=== PATIENT | female | born 1960 | race Caucasian/White ===

== ENCOUNTER 2016-08-12 15:23 | Outpatient (CLI) | payer BC ==
[~2016-08-12 15:23] MED LIST: ASPI81TA2 PO; LIP10 PO; LISI-600 PO; LORA-258 PO; MECL12.5 PO; METO25TA6 PO; POTA10CA68 PO
== END 2016-08-12 19:45 | disposition home or self-care (01) ==
LOC: SRD 15:23
PROVIDERS: ATTEND Family Medicine
DX: J44.9 Chronic obstructive pulmonary disease, unspecified (principal)
CPT/HCPCS: 71020-TC

== ENCOUNTER 2016-11-09 02:05 | Emergency (ER) | payer BC ==
[~2016-11-09] VITALS: Ht 154.9 cm; Wt 90.7 kg
[2016-11-09 02:05] VITALS: BP_SYST 144
[~2016-11-09 02:05] MED LIST changes: -MECL12.5 PO
[2016-11-09 03:23] LABS: BASOPHILS # (AUTO) 0.1 K/uL (0.0-0.2); EOSINOPHILS % (AUTO) 0.5 % (0.0-4.0); HEMOGLOBIN 14.2 g/dL (12.0-16.0); LYMPHOCYTES # (AUTO) 1.8 K/uL (1.0-5.5); LYMPHOCYTES % (AUTO) 20.7 % (20.5-51.5); MEAN CORPUSCULAR HEMOGLOBIN 32 pg (27-31); MEAN CORPUSCULAR HGB CONC 33 % (32-36); MEAN CORPUSCULAR VOLUME 96 fL (79.0-98.0); MONOCYTES # (AUTO) 0.8 K/uL (0.0-1.0); MONOCYTES % (AUTO) 9.8 % (1.7-9.3); NEUTROPHILS # (AUTO) 5.8 K/uL (1.8-7.7); PLATELET COUNT (AUTO) 119 K/uL (130-430); RED BLOOD CELL COUNT(AUTO) 4.49 MIL/uL (4.2-6.2); RED CELL DISTRIBUTION WIDTH 13.3 % (9.0-15.0); WHITE BLOOD COUNT (AUTO) 8.5 K/uL (4.8-10.8)
[2016-11-09 03:36] LABS: INR 1.1 (0.8-1.2); PROTHROMBIN TIME 12.4 SECS (9.5-12.5)
[2016-11-09 03:43] LABS: CALCIUM 8.9 mg/dL (8.4-11.0); POTASSIUM 3.3 mmol/L (3.5-5.1)
[2016-11-09 03:44] LABS: CREATININE 0.92 mg/dL (0.55-1.30); TOTAL BILIRUBIN 0.8 mg/dL (0.0-1.0)
[2016-11-09 03:45] LABS: ALBUMIN 3.5 g/dL (3.4-4.8); TOTAL PROTEIN, SERUM 7.3 g/dL (6.4-8.3)
[2016-11-09] MEDS ORDERED: POTASSIUM CHLORIDE 20 MEQ TAB.PRT.SR PO ONE (04:30)
[2016-11-09 04:40] VITALS: BP_SYST 131
== END 2016-11-09 04:40 | disposition home or self-care (01) ==
LOC: SED 02:05
DX: S86.911A Strain of unspecified muscle(s) and tendon(s) at lower leg level, right leg, initial encounter (principal); R60.0 Localized edema; Z86.73 Personal history of transient ischemic attack (TIA), and cerebral infarction without residual deficits; Z79.82 Long term (current) use of aspirin; Z87.891 Personal history of nicotine dependence; X58.XXXA Exposure to other specified factors, initial encounter; Y93.89 Activity, other specified; Y92.89 Other specified places as the place of occurrence of the external cause; Y99.8 Other external cause status
CPT/HCPCS: 36415; 80053; 84484; 85025; 85379; 85610-TC; 93971; 99285

== ENCOUNTER 2023-06-23 13:51 | Inpatient (IN) | payer BC ==
[~2023-06-23] VITALS: Ht 157.5 cm; Wt 73.5 kg
[~2023-06-23 13:51] MED LIST changes: +ASPI-1155 PO; -ASPI81TA2 PO; -LISI-600 PO; +LISI20TA30 PO
[2023-06-23 13:56] VITALS: BP_SYST 137; PULSE 121; RESP 28; TEMP 98.9; O2SAT 91
[2023-06-23] MEDS ORDERED: METF-379 PO (14:15)
[2023-06-23] MEDS ORDERED: CALC-1263 PO (14:15)
[2023-06-23] MEDS ORDERED: ASCO500T20 PO (14:15)
[2023-06-23] MEDS ORDERED: IPRATROPIUM/ALBUTEROL SULFATE 3 ML AMPUL.NEB (DUONEB) INH ONE (14:15)
[2023-06-23] MEDS ORDERED: ASPI-1393 PO (14:15)
[2023-06-23] MEDS ORDERED: DEXAMETHASONE SOD PHOSPHATE 10 MG/ML VIAL IVP ONE (14:15)
[2023-06-23] MEDS ORDERED: VITD2000 PO (14:15)
[2023-06-23] MEDS ORDERED: guaiFENesin/DEXTROMETHORPHAN 10 ML UDC PO ONE ×2 (14:15→21:30)
[2023-06-23] MEDS ORDERED: ALBMDI INH (14:15)
[2023-06-23] MEDS ORDERED: LOSA-413 PO (14:15)
[2023-06-23] MEDS ORDERED: MAGN400T10 PO (14:15)
[2023-06-23 14:40] LABS: BASOPHILS % (AUTO) 0.2 % (0.0-2.0); HEMOGLOBIN 14.3 g/dL (12.0-16.0); LYMPHOCYTES # (AUTO) 0.6 K/uL (1.0-5.5); MONOCYTES % (AUTO) 10.1 % (1.7-9.3)
[2023-06-23] MEDS ORDERED: KETOROLAC TROMETHAMINE 30 MG VIAL IVP ONE (14:45)
[2023-06-23 14:48] LABS: EOSINOPHILS % (AUTO) 0.4 % (0.0-4.0); LYMPHOCYTES % (AUTO) 5.2 % (20.5-51.5); MEAN CORPUSCULAR HEMOGLOBIN 31 pg (27-31); MEAN CORPUSCULAR HGB CONC 34 % (32-36); MEAN CORPUSCULAR VOLUME 91 fL (79.0-98.0); MONOCYTES # (AUTO) 1.3 K/uL (0.0-1.0); NEUTROPHILS # (AUTO) 10.4 K/uL (1.8-7.7); NEUTROPHILS % (AUTO) 84.1 % (40.0-70.0); PLATELET COUNT (AUTO) 221 K/uL (130-430); RED BLOOD CELL COUNT(AUTO) 4.62 MIL/uL (4.2-6.2); RED CELL DISTRIBUTION WIDTH 14.4 % (9.0-15.0); WHITE BLOOD COUNT (AUTO) 12.4 K/uL (4.8-10.8)
[2023-06-23 14:55] LABS: ANION GAP 13 (5-15); CALCIUM 9.2 mg/dL (8.4-11.0); CARBON DIOXIDE 25 mmol/L (23-29); CHLORIDE 100 mmol/L (98-107); CREATININE 0.76 mg/dL (0.55-1.30); GFR AFRICAN AMERICAN 99 mL/min (>90); GFR NON AFRICAN-AMERICAN 81 mL/min (>90); GLUCOSE 161 mg/dL (74-106); POTASSIUM 3.6 mmol/L (3.5-5.1); SODIUM SERUM 138 mmol/L (136-145); UREA NITROGEN, BLOOD 8 mg/dL (8-21)
[2023-06-23 14:56] LABS: INR 1.1 (0.8-1.2)
[2023-06-23 15:01] LABS: ALANINE AMINOTRANSFERASE 43 U/L (12-78); ASPARTATE AMINOTRANSFERASE 29 U/L (10-37); BILIRUBIN,DIRECT 0.2 mg/dL (0.0-0.3); TOTAL BILIRUBIN 0.7 mg/dL (0.0-1.0); TOTAL PROTEIN, SERUM 7.6 g/dL (6.4-8.3)
[2023-06-23] MEDS ORDERED: cefTRIAXone 1 GM in D5W 50 ML IV ONE (16:00)
[2023-06-23] MEDS ORDERED: AZITHROMYCIN 500 MG in NS 250 ML IV ONE (16:00)
[2023-06-23] MEDS ORDERED: INSULIN REGULAR, HUMAN 100 UNITS/ML, 3 ML VIAL (humuLIN R) SUBCUT PRN (16:15)
[2023-06-23 16:21] LABS: BILIRUBIN,URINE 1+ (NEGATIVE); BLOOD, URINE NEGATIVE (NEGATIVE); CLARITY/URINE CLEAR (CLEAR); COLOR,URINE YELLOW (YELLOW); GLUCOSE,URINE NEGATIVE (NEGATIVE); KETONES,URINE 1+ (NEGATIVE); LEUKOCYTE ESTERASE ,URINE NEGATIVE (NEGATIVE); NITRITE, URINE NEGATIVE (NEGATIVE); PROTEIN URINE TRACE (NEGATIVE); UROBILINOGEN,URINE 0.2 (0.2-1.0)
[2023-06-23] MEDS ORDERED: GUAI-1313 PO (16:31)
[2023-06-23] MEDS ORDERED: CYAN250T3 PO (16:31)
[2023-06-23] MEDS ORDERED: GLUC-160 PO (16:31)
[2023-06-23] MEDS ORDERED: cefTRIAXone 1 GM VIAL ONE (16:39)
[2023-06-23] MEDS ORDERED: AZITHROMYCIN 500 MG/VIAL (ZITHROMAX) IV ONE ×2 (17:06→17:07)
[2023-06-23 17:21] LABS: INFLUENZA TYPE A Negative (NEGATIVE); INFLUENZA TYPE B NEGATIVE (NEGATIVE)
[2023-06-23 17:25] LABS: RESPIRATORY SYNCYTIAL VIRUS NEGATIVE (NEGATIVE)
[2023-06-23 18:05] LABS: BACTERIA,URINE None Seen /HPF (None Seen)
[2023-06-23] MEDS ORDERED: GUAIFENESIN PO SCH (18:45)
[2023-06-23] MEDS ORDERED: [UNRECOGNIZED DRUG - OTHER] PO SCH (18:45)
[2023-06-23] MEDS ORDERED: DEXTROMETHORPHAN PO SCH (18:45)
[2023-06-23] MEDS ORDERED: LORazepam 1 MG TABLET PO PRN (18:45)
[2023-06-23 19:53] VITALS: BP_SYST 128; PULSE 92; O2SAT 93
[2023-06-23 20:10] VITALS: O2SAT 93
[2023-06-23] MEDS: LevALBUTEROL HCL 1.25 MG/0.5 ML *CONC.* VIAL.NEB (XOPENEX CONC.) INH PRN (20:13)
[2023-06-23] MEDS ORDERED: GLUCOSAMINE PO SCH (21:00)
[2023-06-23] MEDS ORDERED: D3 PO SCH (21:00)
[2023-06-23] MEDS: CALCIUM CARBONATE/VITAMIN D3 1 TAB TABLET PO SCH (21:00)
[2023-06-23] MEDS ORDERED: BOSWELLIA SERRA PO SCH (21:00)
[2023-06-23] MEDS ORDERED: BENZONATATE 100 MG CAPSULE (TESSALON) PO ONE (21:30)
[2023-06-23] MEDS: ATORVASTATIN 10 MG TABLET PO SCH (21:35)
[2023-06-23] MEDS: METOPROLOL TARTRATE 25 MG TABLET PO SCH (21:36)
[2023-06-23] MEDS: ENOXAPARIN SODIUM 40 MG/0.4 ML SYRINGE SUBCUT SCH (21:44)
[2023-06-23] MEDS ORDERED: INSULIN REGULAR, HUMAN 10 UNITS/0.1 ML, 3 ML VIAL ONE (22:44)
[2023-06-23] MEDS: INSULIN REGULAR, HUMAN 100 UNITS/ML, 3 ML VIAL (humuLIN R) SUBCUT PRN (22:53)
[2023-06-23 23:00] VITALS: O2SAT 94
[2023-06-23] MEDS: LevALBUTEROL HCL 1.25 MG/0.5 ML *CONC.* VIAL.NEB (XOPENEX CONC.) INH SCH (23:10)
[2023-06-23] MEDS ORDERED: BENZONATATE 100 MG CAPSULE (TESSALON) ONE (23:21)
[2023-06-24] MEDS: ACETAMINOPHEN 325 MG TABLET PO PRN (00:59)
[2023-06-24] MEDS: LevALBUTEROL HCL 1.25 MG/0.5 ML *CONC.* VIAL.NEB (XOPENEX CONC.) INH PRN (04:04)
[2023-06-24 04:05] VITALS: O2SAT 94
[2023-06-24] MEDS: LevALBUTEROL HCL 1.25 MG/0.5 ML *CONC.* VIAL.NEB (XOPENEX CONC.) INH SCH ×2 (08:13→14:00)
[2023-06-24 08:14] VITALS: O2SAT 95
[2023-06-24] MEDS: INSULIN REGULAR, HUMAN 100 UNITS/ML, 3 ML VIAL (humuLIN R) SUBCUT PRN (08:27)
[2023-06-24] MEDS: metFORMIN HCL 500 MG TABLET PO SCH ×2 (09:13→18:33)
[2023-06-24] MEDS: CALCIUM CARBONATE/VITAMIN D3 1 TAB TABLET PO SCH ×2 (09:44→21:00)
[2023-06-24] MEDS: METOPROLOL TARTRATE 25 MG TABLET PO SCH ×2 (09:47→21:00)
[2023-06-24] MEDS: POTASSIUM CHLORIDE 10 MEQ TABLET.ER PO SCH (09:57)
[2023-06-24] MEDS: LOSARTAN POTASSIUM 50 MG TABLET (COZAAR) PO SCH (09:57)
[2023-06-24] MEDS: ASCORBIC ACID 500 MG TABLET PO SCH (09:57)
[2023-06-24] MEDS: ASPIRIN 81 MG TABLET(ECOTRIN) PO SCH (09:57)
[2023-06-24] MEDS: CYANOCOBALAMIN (VITAMIN B-12) 1,000 MCG TABLET PO SCH (09:57)
[2023-06-24] MEDS: CHOLECALCIFEROL (VITAMIN D3) 2,000 UNIT TABLET PO SCH (09:57)
[2023-06-24] MEDS: MAGNESIUM OXIDE 400 MG TABLET PO SCH (09:57)
[2023-06-24 14:00] VITALS: O2SAT 93
[2023-06-24] MEDS: cefTRIAXone 1 GM in D5W 50 ML IV SCH (17:24)
[2023-06-24] MEDS ORDERED: metFORMIN HCL 500 MG TABLET ONE (18:29)
[2023-06-24] MEDS: AZITHROMYCIN 500 MG in NS 250 ML IV SCH (18:33)
[2023-06-24 19:10] VITALS: BP_SYST 132; PULSE 76; RESP 16; TEMP 97.4; O2SAT 96
[2023-06-24] MEDS ORDERED: BUDESONIDE 0.5 MG/2 ML AMPUL.NEB INH ONE (19:15)
[2023-06-24 20:00] VITALS: BP_SYST 132; PULSE 76; RESP 16; TEMP 97.4; O2SAT 96
[2023-06-24 20:38] VITALS: O2SAT 96
[2023-06-24] MEDS: ATORVASTATIN 10 MG TABLET PO SCH (21:00)
[2023-06-24] MEDS ORDERED: FLUTICASONE 250 mCg/SALMETEROL 50 mCg DISKUS W.DEV INH SCH (21:00)
[2023-06-24] MEDS: ENOXAPARIN SODIUM 40 MG/0.4 ML SYRINGE SUBCUT SCH (21:00)
[2023-06-24] MEDS: guaiFENesin/DEXTROMETHORPHAN 10 ML UDC PO PRN (23:41)
[2023-06-25] VITALS (11 sets, daily range): BP systolic 130–147; PULSE 65–81; RESP 16–18; TEMP 97.2–98.1; O2SAT 2–98
[2023-06-25] MEDS: ACETAMINOPHEN 325 MG TABLET PO PRN (02:10)
[2023-06-25] MEDS: guaiFENesin/DEXTROMETHORPHAN 10 ML UDC PO PRN ×2 (05:48→17:52)
[2023-06-25 06:43] LABS: EOSINOPHILS % (AUTO) 0.2 % (0.0-4.0); HEMATOCRIT 37.1 % (36-48); HEMOGLOBIN 12.4 g/dL (12.0-16.0); LYMPHOCYTES # (AUTO) 1.2 K/uL (1.0-5.5); LYMPHOCYTES % (AUTO) 9.1 % (20.5-51.5); MEAN CORPUSCULAR HEMOGLOBIN 31 pg (27-31); MEAN CORPUSCULAR HGB CONC 33 % (32-36); MEAN CORPUSCULAR VOLUME 92 fL (79.0-98.0); MONOCYTES # (AUTO) 1.2 K/uL (0.0-1.0); MONOCYTES % (AUTO) 9.3 % (1.7-9.3); NEUTROPHILS # (AUTO) 10.4 K/uL (1.8-7.7); NEUTROPHILS % (AUTO) 81.4 % (40.0-70.0); PLATELET COUNT (AUTO) 240 K/uL (130-430); RED BLOOD CELL COUNT(AUTO) 4.05 MIL/uL (4.2-6.2); RED CELL DISTRIBUTION WIDTH 14.4 % (9.0-15.0); WHITE BLOOD COUNT (AUTO) 12.7 K/uL (4.8-10.8)
[2023-06-25] MEDS: LevALBUTEROL HCL 1.25 MG/0.5 ML *CONC.* VIAL.NEB (XOPENEX CONC.) INH SCH ×2 (07:00→15:00)
[2023-06-25] MEDS: BUDESONIDE 0.5 MG/2 ML AMPUL.NEB INH SCH ×2 (07:00→20:24)
[2023-06-25 07:07] LABS: CREATININE 0.76 mg/dL (0.55-1.30); POTASSIUM 3.8 mmol/L (3.5-5.1)
[2023-06-25] MEDS: METOPROLOL TARTRATE 25 MG TABLET PO SCH ×2 (09:31→20:53)
[2023-06-25] MEDS: metFORMIN HCL 500 MG TABLET PO SCH ×2 (09:31→17:52)
[2023-06-25] MEDS: LOSARTAN POTASSIUM 50 MG TABLET (COZAAR) PO SCH (09:32)
[2023-06-25] MEDS: POTASSIUM CHLORIDE 10 MEQ TABLET.ER PO SCH (09:32)
[2023-06-25] MEDS: ASCORBIC ACID 500 MG TABLET PO SCH (09:32)
[2023-06-25] MEDS: ASPIRIN 81 MG TABLET(ECOTRIN) PO SCH (09:32)
[2023-06-25] MEDS: MAGNESIUM OXIDE 400 MG TABLET PO SCH ×2 (09:33→21:00)
[2023-06-25] MEDS: CYANOCOBALAMIN (VITAMIN B-12) 1,000 MCG TABLET PO SCH (09:33)
[2023-06-25] MEDS: CALCIUM CARBONATE/VITAMIN D3 1 TAB TABLET PO SCH ×2 (09:33→20:52)
[2023-06-25] MEDS: CHOLECALCIFEROL (VITAMIN D3) 2,000 UNIT TABLET PO SCH (09:33)
[2023-06-25] MEDS: LevALBUTEROL HCL 1.25 MG/0.5 ML *CONC.* VIAL.NEB (XOPENEX CONC.) INH PRN (12:51)
[2023-06-25] MEDS: cefTRIAXone 1 GM in D5W 50 ML IV SCH (17:24)
[2023-06-25] MEDS: AZITHROMYCIN 500 MG in NS 250 ML IV SCH (17:24)
[2023-06-25] MEDS: traMADol HCL HCL 50 MG TABLET (ULTRAM) PO PRN (18:12)
[2023-06-25] MEDS: guaiFENesin ER 600 MG TAB PO SCH (20:53)
[2023-06-25] MEDS: ENOXAPARIN SODIUM 40 MG/0.4 ML SYRINGE SUBCUT SCH (20:54)
[2023-06-26] VITALS (11 sets, daily range): BP systolic 132–148; PULSE 69–80; RESP 17–18; TEMP 96.6–97.9; O2SAT 2–98
[2023-06-26] MEDS: BUDESONIDE 0.5 MG/2 ML AMPUL.NEB INH SCH ×2 (07:51→19:38)
[2023-06-26] MEDS: LevALBUTEROL HCL 1.25 MG/0.5 ML *CONC.* VIAL.NEB (XOPENEX CONC.) INH SCH ×3 (07:51→23:15)
[2023-06-26] MEDS: ASPIRIN 81 MG TABLET(ECOTRIN) PO SCH (09:10)
[2023-06-26] MEDS: ASCORBIC ACID 500 MG TABLET PO SCH (09:10)
[2023-06-26] MEDS: guaiFENesin ER 600 MG TAB PO SCH ×2 (09:10→21:24)
[2023-06-26] MEDS: metFORMIN HCL 500 MG TABLET PO SCH ×2 (09:10→19:44)
[2023-06-26] MEDS: POTASSIUM CHLORIDE 10 MEQ TABLET.ER PO SCH ×2 (09:11→21:23)
[2023-06-26] MEDS: CHOLECALCIFEROL (VITAMIN D3) 2,000 UNIT TABLET PO SCH (09:11)
[2023-06-26] MEDS: CYANOCOBALAMIN (VITAMIN B-12) 1,000 MCG TABLET PO SCH (09:12)
[2023-06-26] MEDS: METOPROLOL TARTRATE 25 MG TABLET PO SCH ×2 (09:12→21:24)
[2023-06-26] MEDS: LOSARTAN POTASSIUM 50 MG TABLET (COZAAR) PO SCH (09:12)
[2023-06-26] MEDS: CALCIUM CARBONATE/VITAMIN D3 1 TAB TABLET PO SCH ×2 (09:13→21:23)
[2023-06-26] MEDS: cefTRIAXone 1 GM in D5W 50 ML IV SCH (16:20)
[2023-06-26] MEDS: AZITHROMYCIN 500 MG in NS 250 ML IV SCH (19:43)
[2023-06-26] MEDS: MAGNESIUM OXIDE 400 MG TABLET PO SCH (21:23)
[2023-06-26] MEDS: ENOXAPARIN SODIUM 40 MG/0.4 ML SYRINGE SUBCUT SCH (21:25)
[2023-06-27] VITALS (11 sets, daily range): BP systolic 137–146; PULSE 64–86; RESP 18; TEMP 95.9–96.4; O2SAT 93–100
[2023-06-27] MEDS: LevALBUTEROL HCL 1.25 MG/0.5 ML *CONC.* VIAL.NEB (XOPENEX CONC.) INH PRN ×2 (05:06→13:15)
[2023-06-27] MEDS: LevALBUTEROL HCL 1.25 MG/0.5 ML *CONC.* VIAL.NEB (XOPENEX CONC.) INH SCH ×3 (07:00→23:45)
[2023-06-27] MEDS: BUDESONIDE 0.5 MG/2 ML AMPUL.NEB INH SCH ×2 (07:00→19:39)
[2023-06-27 07:53] LABS: BASOPHILS % (AUTO) 0.3 % (0.0-2.0); EOSINOPHILS # (AUTO) 0.1 K/uL (0.0-0.4); EOSINOPHILS % (AUTO) 1.5 % (0.0-4.0); HEMATOCRIT 37.4 % (36-48); HEMOGLOBIN 12.7 g/dL (12.0-16.0); LYMPHOCYTES # (AUTO) 1.4 K/uL (1.0-5.5); LYMPHOCYTES % (AUTO) 18.7 % (20.5-51.5); MEAN CORPUSCULAR HEMOGLOBIN 31 pg (27-31); MEAN CORPUSCULAR HGB CONC 34 % (32-36); MEAN CORPUSCULAR VOLUME 91 fL (79.0-98.0); MONOCYTES # (AUTO) 0.9 K/uL (0.0-1.0); MONOCYTES % (AUTO) 11.8 % (1.7-9.3); NEUTROPHILS % (AUTO) 67.7 % (40.0-70.0); PLATELET COUNT (AUTO) 232 K/uL (130-430); RED BLOOD CELL COUNT(AUTO) 4.11 MIL/uL (4.2-6.2); RED CELL DISTRIBUTION WIDTH 14.3 % (9.0-15.0); WHITE BLOOD COUNT (AUTO) 7.4 K/uL (4.8-10.8)
[2023-06-27 08:06] LABS: CALCIUM 8.3 mg/dL (8.4-11.0); CREATININE 0.66 mg/dL (0.55-1.30); POTASSIUM 3.6 mmol/L (3.5-5.1)
[2023-06-27] MEDS: CHOLECALCIFEROL (VITAMIN D3) 2,000 UNIT TABLET PO SCH (09:24)
[2023-06-27] MEDS: METOPROLOL TARTRATE 25 MG TABLET PO SCH ×2 (09:24→22:05)
[2023-06-27] MEDS: metFORMIN HCL 500 MG TABLET PO SCH ×2 (09:25→17:19)
[2023-06-27] MEDS: guaiFENesin ER 600 MG TAB PO SCH ×2 (09:25→22:04)
[2023-06-27] MEDS: ASCORBIC ACID 500 MG TABLET PO SCH (09:25)
[2023-06-27] MEDS: ASPIRIN 81 MG TABLET(ECOTRIN) PO SCH (09:25)
[2023-06-27] MEDS: LOSARTAN POTASSIUM 50 MG TABLET (COZAAR) PO SCH (09:26)
[2023-06-27] MEDS: CALCIUM CARBONATE/VITAMIN D3 1 TAB TABLET PO SCH ×2 (09:26→22:04)
[2023-06-27] MEDS: CYANOCOBALAMIN (VITAMIN B-12) 1,000 MCG TABLET PO SCH (09:26)
[2023-06-27] MEDS: cefTRIAXone 1 GM in D5W 50 ML IV SCH (16:22)
[2023-06-27] MEDS: MAGNESIUM OXIDE 400 MG TABLET PO SCH (22:03)
[2023-06-27] MEDS: LACTOBACILLUS RHAMNOSUS GG 1 CAP CAPSULE PO SCH (22:03)
[2023-06-27] MEDS: ENOXAPARIN SODIUM 40 MG/0.4 ML SYRINGE SUBCUT SCH (22:04)
[2023-06-27] MEDS: POTASSIUM CHLORIDE 10 MEQ TABLET.ER PO SCH (22:04)
[2023-06-27] MEDS: traMADol HCL HCL 50 MG TABLET (ULTRAM) PO PRN (23:51)
[2023-06-28] VITALS (9 sets, daily range): BP systolic 132–142; PULSE 68–82; RESP 16–18; TEMP 96.4–98; O2SAT 94–99
[2023-06-28] MEDS: AZITHROMYCIN 500 MG in NS 250 ML IV SCH (01:24)
[2023-06-28] MEDS: BUDESONIDE 0.5 MG/2 ML AMPUL.NEB INH SCH ×2 (07:58→19:26)
[2023-06-28] MEDS: LevALBUTEROL HCL 1.25 MG/0.5 ML *CONC.* VIAL.NEB (XOPENEX CONC.) INH SCH ×3 (07:58→22:52)
[2023-06-28 08:10] LABS: BASOPHILS % (AUTO) 0.5 % (0.0-2.0); EOSINOPHILS # (AUTO) 0.2 K/uL (0.0-0.4); HEMATOCRIT 36.7 % (36-48); HEMOGLOBIN 12.4 g/dL (12.0-16.0); LYMPHOCYTES # (AUTO) 1.6 K/uL (1.0-5.5); LYMPHOCYTES % (AUTO) 21.9 % (20.5-51.5); MEAN CORPUSCULAR HEMOGLOBIN 31 pg (27-31); MEAN CORPUSCULAR HGB CONC 34 % (32-36); MEAN CORPUSCULAR VOLUME 91 fL (79.0-98.0); MONOCYTES # (AUTO) 0.8 K/uL (0.0-1.0); MONOCYTES % (AUTO) 10.1 % (1.7-9.3); NEUTROPHILS # (AUTO) 4.9 K/uL (1.8-7.7); NEUTROPHILS % (AUTO) 65.5 % (40.0-70.0); PLATELET COUNT (AUTO) 263 K/uL (130-430); RED BLOOD CELL COUNT(AUTO) 4.04 MIL/uL (4.2-6.2); RED CELL DISTRIBUTION WIDTH 14.6 % (9.0-15.0); WHITE BLOOD COUNT (AUTO) 7.5 K/uL (4.8-10.8)
[2023-06-28 08:25] LABS: CALCIUM 9.1 mg/dL (8.4-11.0); CREATININE 0.68 mg/dL (0.55-1.30); POTASSIUM 3.6 mmol/L (3.5-5.1)
[2023-06-28] MEDS: ACETAMINOPHEN 325 MG TABLET PO PRN (08:33)
[2023-06-28] MEDS: CALCIUM CARBONATE/VITAMIN D3 1 TAB TABLET PO SCH ×2 (08:35→20:35)
[2023-06-28] MEDS: metFORMIN HCL 500 MG TABLET PO SCH (08:35)
[2023-06-28] MEDS: METOPROLOL TARTRATE 25 MG TABLET PO SCH ×2 (08:36→20:36)
[2023-06-28] MEDS: guaiFENesin ER 600 MG TAB PO SCH ×2 (08:37→20:36)
[2023-06-28] MEDS: CHOLECALCIFEROL (VITAMIN D3) 2,000 UNIT TABLET PO SCH (10:30)
[2023-06-28] MEDS: ASPIRIN 81 MG TABLET(ECOTRIN) PO SCH (10:30)
[2023-06-28] MEDS: LACTOBACILLUS RHAMNOSUS GG 1 CAP CAPSULE PO SCH ×2 (10:30→20:36)
[2023-06-28] MEDS: CYANOCOBALAMIN (VITAMIN B-12) 1,000 MCG TABLET PO SCH (10:31)
[2023-06-28] MEDS: LOSARTAN POTASSIUM 50 MG TABLET (COZAAR) PO SCH (10:31)
[2023-06-28] MEDS: ASCORBIC ACID 500 MG TABLET PO SCH (10:31)
[2023-06-28] MEDS: guaiFENesin/DEXTROMETHORPHAN 10 ML UDC PO PRN ×2 (12:38→22:57)
[2023-06-28] MEDS: cefTRIAXone 1 GM in D5W 50 ML IV SCH (16:34)
[2023-06-28] MEDS: MAGNESIUM OXIDE 400 MG TABLET PO SCH (20:35)
[2023-06-28] MEDS: POTASSIUM CHLORIDE 10 MEQ TABLET.ER PO SCH (20:36)
[2023-06-28] MEDS: ENOXAPARIN SODIUM 40 MG/0.4 ML SYRINGE SUBCUT SCH (20:37)
[2023-06-28] MEDS: traMADol HCL HCL 50 MG TABLET (ULTRAM) PO PRN (22:57)
[2023-06-29] VITALS (9 sets, daily range): BP systolic 126–148; PULSE 62–83; RESP 16–18; TEMP 96.8–98.7; O2SAT 94–99
[2023-06-29] MEDS: AZITHROMYCIN 500 MG in NS 250 ML IV SCH (01:44)
[2023-06-29 06:32] LABS: BASOPHILS # (AUTO) 0.1 K/uL (0.0-0.2); BASOPHILS % (AUTO) 0.6 % (0.0-2.0); EOSINOPHILS # (AUTO) 0.2 K/uL (0.0-0.4); EOSINOPHILS % (AUTO) 1.8 % (0.0-4.0); HEMATOCRIT 36.5 % (36-48); HEMOGLOBIN 12.4 g/dL (12.0-16.0); LYMPHOCYTES # (AUTO) 1.6 K/uL (1.0-5.5); MEAN CORPUSCULAR HEMOGLOBIN 31 pg (27-31); MEAN CORPUSCULAR HGB CONC 34 % (32-36); MEAN CORPUSCULAR VOLUME 90 fL (79.0-98.0); MONOCYTES # (AUTO) 0.9 K/uL (0.0-1.0); MONOCYTES % (AUTO) 10.2 % (1.7-9.3); NEUTROPHILS % (AUTO) 69.4 % (40.0-70.0); PLATELET COUNT (AUTO) 264 K/uL (130-430); RED BLOOD CELL COUNT(AUTO) 4.04 MIL/uL (4.2-6.2); RED CELL DISTRIBUTION WIDTH 14.9 % (9.0-15.0); WHITE BLOOD COUNT (AUTO) 8.7 K/uL (4.8-10.8)
[2023-06-29] MEDS: BUDESONIDE 0.5 MG/2 ML AMPUL.NEB INH SCH ×2 (07:00→19:42)
[2023-06-29 07:02] LABS: CALCIUM 9.2 mg/dL (8.4-11.0); CREATININE 0.66 mg/dL (0.55-1.30); POTASSIUM 4.1 mmol/L (3.5-5.1)
[2023-06-29] MEDS: LevALBUTEROL HCL 1.25 MG/0.5 ML *CONC.* VIAL.NEB (XOPENEX CONC.) INH SCH ×2 (07:40→14:38)
[2023-06-29] MEDS: ASPIRIN 81 MG TABLET(ECOTRIN) PO SCH (10:17)
[2023-06-29] MEDS: guaiFENesin ER 600 MG TAB PO SCH ×2 (10:17→21:08)
[2023-06-29] MEDS: LACTOBACILLUS RHAMNOSUS GG 1 CAP CAPSULE PO SCH ×2 (10:17→21:07)
[2023-06-29] MEDS: CYANOCOBALAMIN (VITAMIN B-12) 1,000 MCG TABLET PO SCH (10:18)
[2023-06-29] MEDS: LOSARTAN POTASSIUM 50 MG TABLET (COZAAR) PO SCH (10:18)
[2023-06-29] MEDS: ASCORBIC ACID 500 MG TABLET PO SCH (10:18)
[2023-06-29] MEDS: CALCIUM CARBONATE/VITAMIN D3 1 TAB TABLET PO SCH ×2 (10:18→21:10)
[2023-06-29] MEDS: METOPROLOL TARTRATE 25 MG TABLET PO SCH ×2 (10:18→21:08)
[2023-06-29] MEDS: CHOLECALCIFEROL (VITAMIN D3) 2,000 UNIT TABLET PO SCH (10:19)
[2023-06-29] MEDS: ACETAMINOPHEN 325 MG TABLET PO PRN (14:23)
[2023-06-29] MEDS: cefTRIAXone 1 GM in D5W 50 ML IV SCH (18:04)
[2023-06-29] MEDS: POTASSIUM CHLORIDE 10 MEQ TABLET.ER PO SCH (21:09)
[2023-06-29] MEDS: MAGNESIUM OXIDE 400 MG TABLET PO SCH (21:10)
[2023-06-29] MEDS: ENOXAPARIN SODIUM 40 MG/0.4 ML SYRINGE SUBCUT SCH (21:11)
[2023-06-29] MEDS: traMADol HCL HCL 50 MG TABLET (ULTRAM) PO PRN (22:50)
[2023-06-30] VITALS (11 sets, daily range): BP systolic 113–147; PULSE 60–84; RESP 16–19; TEMP 97.1–99.3; O2SAT 92–97
[2023-06-30] MEDS: BUDESONIDE 0.5 MG/2 ML AMPUL.NEB INH SCH ×3 (07:00→19:39)
[2023-06-30] MEDS: ACETAMINOPHEN 325 MG TABLET PO PRN (09:28)
[2023-06-30] MEDS: ASPIRIN 81 MG TABLET(ECOTRIN) PO SCH (09:30)
[2023-06-30] MEDS: METOPROLOL TARTRATE 25 MG TABLET PO SCH ×2 (09:32→21:26)
[2023-06-30] MEDS: guaiFENesin ER 600 MG TAB PO SCH ×2 (09:34→21:26)
[2023-06-30] MEDS: CHOLECALCIFEROL (VITAMIN D3) 2,000 UNIT TABLET PO SCH (09:35)
[2023-06-30] MEDS: ASCORBIC ACID 500 MG TABLET PO SCH (09:35)
[2023-06-30] MEDS: LACTOBACILLUS RHAMNOSUS GG 1 CAP CAPSULE PO SCH ×2 (09:35→21:26)
[2023-06-30] MEDS: CALCIUM CARBONATE/VITAMIN D3 1 TAB TABLET PO SCH ×2 (09:36→21:25)
[2023-06-30] MEDS: LOSARTAN POTASSIUM 50 MG TABLET (COZAAR) PO SCH (09:36)
[2023-06-30] MEDS: CYANOCOBALAMIN (VITAMIN B-12) 1,000 MCG TABLET PO SCH (09:36)
[2023-06-30] MEDS: LevALBUTEROL HCL 1.25 MG/0.5 ML *CONC.* VIAL.NEB (XOPENEX CONC.) INH SCH ×2 (09:49→15:52)
[2023-06-30] MEDS: cefTRIAXone 1 GM in D5W 50 ML IV SCH (19:36)
[2023-06-30] MEDS: MAGNESIUM OXIDE 400 MG TABLET PO SCH (21:25)
[2023-06-30] MEDS: ENOXAPARIN SODIUM 40 MG/0.4 ML SYRINGE SUBCUT SCH (21:25)
[2023-06-30] MEDS: POTASSIUM CHLORIDE 10 MEQ TABLET.ER PO SCH (21:26)
[2023-06-30] MEDS: traMADol HCL HCL 50 MG TABLET (ULTRAM) PO PRN (22:20)
[2023-07-01 00:14] VITALS: BP_SYST 127; BP_SYST 129; PULSE 67; PULSE 84; RESP 18; TEMP 97.3; O2SAT 93; O2SAT 94
[2023-07-01] MEDS: BUDESONIDE 0.5 MG/2 ML AMPUL.NEB INH SCH (07:00)
[2023-07-01 07:46] VITALS: O2SAT 97
[2023-07-01 08:01] VITALS: O2SAT 93
[2023-07-01] MEDS: LevALBUTEROL HCL 1.25 MG/0.5 ML *CONC.* VIAL.NEB (XOPENEX CONC.) INH SCH ×2 (08:04→15:18)
[2023-07-01 08:09] VITALS: BP_SYST 132; PULSE 77; RESP 17; TEMP 98.4; O2SAT 93
[2023-07-01] MEDS: ASCORBIC ACID 500 MG TABLET PO SCH (10:39)
[2023-07-01] MEDS: ASPIRIN 81 MG TABLET(ECOTRIN) PO SCH (10:40)
[2023-07-01] MEDS: LOSARTAN POTASSIUM 50 MG TABLET (COZAAR) PO SCH (10:41)
[2023-07-01] MEDS: CHOLECALCIFEROL (VITAMIN D3) 2,000 UNIT TABLET PO SCH (10:41)
[2023-07-01] MEDS: METOPROLOL TARTRATE 25 MG TABLET PO SCH (10:42)
[2023-07-01] MEDS: CYANOCOBALAMIN (VITAMIN B-12) 1,000 MCG TABLET PO SCH (10:42)
[2023-07-01] MEDS: guaiFENesin ER 600 MG TAB PO SCH (10:42)
[2023-07-01] MEDS: CALCIUM CARBONATE/VITAMIN D3 1 TAB TABLET PO SCH (10:43)
[2023-07-01] MEDS: LACTOBACILLUS RHAMNOSUS GG 1 CAP CAPSULE PO SCH (10:43)
[2023-07-01 15:18] VITALS: O2SAT 97
[2023-07-01 16:51] VITALS: BP_SYST 118; PULSE 64; RESP 19; TEMP 96.8; O2SAT 97
== END 2023-07-01 17:45 | disposition home or self-care (01) | DRG 190 ==
LOC: SED 13:51 → STU 16:07 → SMU 06-27 19:34
PROVIDERS: ADMIT Family Medicine; ATTEND Family Medicine
DX: J44.1 Chronic obstructive pulmonary disease with (acute) exacerbation (principal); J18.9 Pneumonia, unspecified organism; J45.901 Unspecified asthma with (acute) exacerbation; J44.0 Chronic obstructive pulmonary disease with (acute) lower respiratory infection; Z20.822 Contact with and (suspected) exposure to COVID-19; I10 Essential (primary) hypertension; E11.65 Type 2 diabetes mellitus with hyperglycemia; E78.5 Hyperlipidemia, unspecified; Z79.899 Other long term (current) drug therapy
CPT/HCPCS: 36415; 71045; 71046-TC; 71260-TC; 76376; 80048; 80076; 81000; 81001; 81015; 82948; 82962; 83605; 83735; 83880; 84484; 85025; 85610-TC; 85730-TC; 87040; 87086; 87420; 93005; 94640; 94760; 99285; G0378; J0456; J0696; J1100; J1650; J1815; J1885; J7050; J7060; J7612; J7626; Q9967